=== PATIENT | female | born 1980 | race Two or more races ===

== ENCOUNTER 2020-08-11 12:21 | Outpatient (CLI) | payer OTHER | END 2020-08-11 12:29 | disposition home or self-care (01) | LOC: LAB 12:21 | PROVIDERS: ATTEND Urology | DX: N30.00 Acute cystitis without hematuria (principal) ==

== ENCOUNTER 2020-10-09 13:37 | Outpatient (CLI) | payer OTHER | END 2020-10-09 13:49 | disposition home or self-care (01) | LOC: LAB 13:37 | PROVIDERS: ATTEND Urology | DX: N30.00 Acute cystitis without hematuria (principal) ==

== ENCOUNTER 2020-10-09 14:01 | Outpatient (CLI) | payer OTHER | END 2020-10-09 14:37 | disposition home or self-care (01) | LOC: RAD 14:01 | PROVIDERS: ATTEND Urology | DX: N20.0 Calculus of kidney (principal); N39.0 Urinary tract infection, site not specified ==